=== PATIENT | male | born 1940 | race Caucasian/White ===

== ENCOUNTER 2021-01-30 15:56 | Emergency (ER) | payer MEDICARE, OTHER ==
[~2021-01-30] VITALS: Ht 177.8 cm; Wt 127.0 kg
--- NOTE | 2021-01-30 17:29 | NUR ---
Patient is back from CT scan in same condition, pending results & disposition
--- NOTE | 2021-01-30 18:28 | NUR ---
Patient ambulated to bathroom with slow steady gait.
--- NOTE | 2021-01-30 19:02 | NUR ---
Patient discharged to home in stable condition. Written and verbal after care instructions given. Patient verbalizes understanding of instructions. Stressed follow up or return to ER for worsening s/s. Patient out of ER with steady gait, no acute signs of distress, VSS, all belongings taken, provided with a copy of CT results.
[2021-01-30 19:04] VITALS: BP 153/87
== END 2021-01-30 19:05 | disposition home or self-care (01) ==
LOC: ER 15:56
DX: S09.90XA Unspecified injury of head, initial encounter (principal); R42 Dizziness and giddiness; R51.9 Headache, unspecified; V79.88XA Bus occupant (driver) (passenger) injured in other specified transport accidents, initial encounter; Y92.414 Local residential or business street as the place of occurrence of the external cause; E78.5 Hyperlipidemia, unspecified; Z86.73 Personal history of transient ischemic attack (TIA), and cerebral infarction without residual deficits; M50.30 Other cervical disc degeneration, unspecified cervical region
CPT/HCPCS: 70450; 72125; A4663